=== PATIENT | male | born 1940 | race Caucasian/White ===

== ENCOUNTER 2016-11-13 23:59 | Inpatient (IN) | payer OTHER ==
--- NOTE | ~2016-11-13 | DS ---
Unit #: [id number] #: [id number] Patient: WENDY FERNANDEZ V [id number] [address] [place], [place] [address] [id number] MR#: [id number] NAME: WENDY FERNANDEZ V. ROOM: [facility] Age: 76 Sex: M Admission Date: 11/14/2016 : 1940 Discharge Date: 11/15/2016 Attending Physician: Rosemary Moon M.D. Primary Care Physician: Saranya Quinones A.P.R.N. DISCHARGE SUMMARY PRINCIPAL DIAGNOSES 1. Acute hypoxic respiratory failure secondary to number 2. 2. Acute exacerbation of chronic obstructive pulmonary disease. 3. Acute on chronic bronchitis. 4. Hyperkalemia. 5. Diabetes mellitus type 2, diet controlled. 6. Stress-induced hyperglycemia. 7. Hypertension. 8. Hyperlipidemia. 9. Stress-induced leukocytosis. 10. Obesity. 11. Coronary artery disease. 12. History of skin cancer. CONSULTANTS Dr. De La Cruz, cardiology. DIAGNOSTIC STUDIES IMAGING: Chest x-ray on November 14, 2016 with no acute findings. CLINICAL HISTORY AND HOSPITAL COURSE Mr. Fernandez is a 76-year-old male with a several-week history of progressive cough and shortness of breath, failing outpatient treatment with steroids and antibiotics. Please refer to H and P for further details. Patient presented to our ER and was found to have mildly low oxygen saturations in the high 80s, particularly with ambulation. White blood cell count was also elevated at 21,000, but patient had recently been taking steroids. Patient was subsequently admitted under the presumed diagnosis of pneumonia. Chest x-ray was done and did not reveal any pneumonia. Patient's symptoms were more consistent with COPD exacerbation and a persistent acute on chronic bronchitis. He was placed on IV steroids and IV antibiotics. This morning ambulating oxygen saturations are normal at 92%, and patient's wheezing, while not resolved, are significantly improved. Patient is insistent he would like to attend a reunion today out of town, and I think he can be safely discharged. I will note this morning patient had some mild hyperkalemia of 5.2, but perhaps this specimen was mildly hemolyzed. I am going to treat with a small dose of Lasix prior to discharge. Patient is also requesting some adjustments in medications, and I will give him meds as outline fellow, but I think ultimately, he needs to follow up with his primary care provider. Unit #: [id number] #: [id number] Patient: WENDY FERNANDEZ V DISCHARGE CONDITION Stable. DISCHARGE STATUS Discharge to home. DISCHARGE MEDICATIONS 1. Dulera 100/5 mcg 2 puffs b.i.d. (note this is replacing Symbicort due to cost, per patient request). 2. Metoprolol succinate 25 mg daily. 3. Losartan 50 mg daily. 4. Plavix 75 mg daily. 5. Prednisone 10 mg tablets: 4 tablets for 3 days, 3 tablets for 3 days, 2 tablets for 3 days, 1 tablet for 3 days, and discontinue. 6. Augmentin 875 mg p.o. b.i.d. patient already has a prescription for this medication, has not taken it. 7. DuoNeb nebulizer treatment q.6 hours p.r.n. shortness of breath. NOTE: I will note patient is also prescribed Combivent but states he is simply not going to use. DISCHARGE INSTRUCTIONS Patient instructed to follow a heart healthy, constant carb diet. He can increase his activity as tolerated. Should monitor his sugars at home while on steroids. FOLLOW-UP Patient will follow up with his primary care provider, Saranya Quinones A.P.R.N., in 2 weeks. Dictated by... Rosemary Moon M.D. HANH/breanne TD: 11/16/2016 16:13 JOB #: [id number] DISCHARGE SUMMARY Page 1 of 1 X Rosemary Moon MD X DISCHARGE SUMMARY
--- NOTE | ~2016-11-13 | EKG ---
PATIENT: WENDY BASHIR UNIT #: [id number] Ventricular Rate: 96 BPM Atrial Rate: 96 BPM P-R Interval: 126 ms QRS Duration: 122 ms Q-T Interval: 394 ms QTC Calculation(Bezet): 497 ms P [place]: 44 degrees Calculated R [place]: -60 degrees Calculated T [place]: 38 degrees Diagnosis Line: Normal sinus rhythm Diagnosis Line: Right bundle branch block Diagnosis Line: Left anterior fascicular block Diagnosis Line: Bifascicular block Diagnosis Line: Abnormal ECG Diagnosis Line: When compared with ECG of 14-NOV-2016 01:21, Diagnosis Line: (unconfirmed) Diagnosis Line: No significant change was found Diagnosis Line: Confirmed by YAYA DIEHL MD ([id number]) on Diagnosis Line: 11/15/2016 11:02:48 PM INTERPRETING MD: NANNETTE
--- NOTE | ~2016-11-13 | CO ---
Unit #: [id number] #: [id number] Patient: WENDY FERNANDEZ V [id number] [address] [place], [place] [address] [id number] MR#: [id number] NAME: WENDY FERNANDEZ V. ROOM: [facility] Age: 76 Sex: M Admission Date: 11/14/2016 : 1940 Attending Physician: Rosemary Moon M.D. Primary Care Physician: Saranya Quinones A.P.R.N. Consultation Date: 11/14/2016 CONSULTATION REPORT REASON FOR CONSULTATION Jaw pain. HISTORY OF PRESENT ILLNESS This is a 76-year-old white male with a known history of having coronary artery disease, had a PCI and stent placed to the RCA back last February at [place] who said two months after that he had pneumonia, recovered from that and then, over the last two to three weeks has been dealing with upper respiratory infection. He was told as an outpatient at the [facility] that he had pneumonia, that he had a couple of runs of antibiotics and some oral steroids. His complaints are a deep cough with occasional white sputum, occasional chills, intermittent left pleuritic chest pain and increased shortness of breath, especially with exertion and he has frequent bronchospasms. He does have a pulse oximetry at home along with a blood pressure cuff. He says over the past couple of days he has been monitoring his O2 saturation and last evening he took it and it was 89% at home. Sometimes when his oxygen level was 89 that he would have some aching in his jaw but denied any chest pain, pain in his neck, shoulders or elbows. He is not having any abdominal or back pain. No nausea, vomiting, diarrhea, abdominal pain. He denies any dizziness, presyncope or syncope. In the emergency room, the patient's blood pressure was 153/53. Heart rate was 129, respirations 18, temperature 98.0. O2 sat was 95% on room air. His chest x-ray, even though it did not show an active infiltrate. His WBC was 21. His lactic acid was also elevated. Initial cardiac enzymes are negative. His BNP is 105. He was treated with 125 mg of IV Solu-Medrol along with given a dose of IV Rocephin and Zithromax and a liter of normal saline. His serum glucose was 320 but he feels like that is mostly from being on steroids. Cardiology has been asked to evaluate the patient for complaints of jaw pain and because he has a history of coronary artery disease and had a stent last year. PAST MEDICAL HISTORY 1. Last cardiac cath was 02/2016 at [facility] done by Dr. Valenzuela status post PCI and resolute drug-eluting stent to the mid RCA, also found mild disease of the proximal circumflex and moderate disease of the proximal mid LAD. The circumflex had a 20 to 30% proximal stenosis and LAD had a mildly calcified 30 to 40% proximal stenosis and a mid 40 to 50% stenosis. Ejection fraction was found to be 60 to 65%, on dual antiplatelet therapy. Unit #: [id number] #: [id number] Patient: WENDY FERNANDEZ V 2. Last 2-D echo done at [facility] on 02/2016 showed LVEF of 50 to 55%, mild LVH, a trace of aortic regurgitation and tricuspid regurgitation, otherwise, unremarkable. 3. Hypertension. 4. Hyperlipidemia. 5. Diabetes mellitus type 2. 6. Dilatation of the ascending aorta, 4.1 cm. 7. COPD, has asthma, reformed smoker, quit in 1989. 8. History of TIAs in the past. 9. History of right bundle branch block on EKG. PAST SURGICAL HISTORY 1. 02/2016 PCI and drug-eluting stent to the mid RCA at [facility] by Dr. Valenzuela. 2. Appendectomy. 3. Kidney stones removed. 4. Skin cancer removed. 5. Right carpal tunnel surgery. 6. Umbilical hernia repair. SOCIAL HISTORY The patient lives with his spouse. He is retired. He quit smoking in 1989. He has a small glass of wine once a week. However, he admits to being a heavy drinker in his twenties and thirties. FAMILY HISTORY He was adopted. ALLERGIES Theophylline, fenofibrate, Demerol, Darvocet, Cipro. HOME MEDICATIONS 1. Losartan 50 mg one tablet p.o. daily. 2. Metoprolol 25 mg one p.o. twice daily. 3. Plavix 74 mg one tablet p.o. once daily. 4. Aspirin 81 mg daily. 5. Combivent and Symbicort. 6. Pravachol 10 mg p.o. daily. 7. Tapering steroid pack. 8. Augmentin, which the patient had taken only one dose. REVIEW OF SYSTEMS See details in HPI. PHYSICAL EXAMINATION GENERAL APPEARANCE: Mr. Fernandez is a 76-year-old white male in no acute respiratory distress. He is awake, alert and oriented. VITAL SIGNS: Blood pressure currently is 150/67. Heart rate 96. Respiration 18. Temperature 97.4. O2 sats 98% on two liters. NECK: Trachea midline. No thyromegaly or lymphadenopathy. Normal carotid upstrokes. No jugular venous distension. HEART: S1, S2. Regular rate and rhythm. No clicks, murmurs or rubs. LUNGS: Diminished with some scattered wheezes and rhonchi, especially in the upper airway. ABDOMEN: Slightly obese, soft, nontender. Positive bowel sounds present. EXTREMITIES: Pedal pulses are palpable. Trace pedal edema. DIAGNOSTIC STUDIES Unit #: [id number] #: [id number] Patient: WENDY FERNANDEZ V LABORATORY: Glucose 320, BUN 34, creatinine 1.3, EGFR 53.0, sodium 138, potassium 4.4, chloride 105, CO2 25, calcium 8.8, total protein 6.9, albumin 3.6, bilirubin total 0.5, AST 17, ALT 17, alkaline phosphatase 57. BNP 105. Lactic acid 3.3 and later 2.5. WBC 21.5, hemoglobin 12.1, hematocrit 38.3, platelets 221. Initial cardiac enzymes: CK MB 4.7, troponin less than 0.05. Latest enzymes: CK total 168, MB 9.8, percentage of MB 5.8, troponin 0.06. Urinalysis is unremarkable. Blood culture is pending. IMAGING: Chest x-ray shows no active disease. CARDIOVASCULAR: EKG shows normal sinus tachycardia. Heart rate 116 beats per minute, right bundle branch block, left anterior fascicular block, poor R wave progression. IMPRESSION 1. Community-acquired pneumonia with COPD exacerbation. 2. Coronary artery disease with complaints of jaw pain on this admission. 3. Status post PCI and stent to the mid RCA, 02/2016. 4. Sinus tachycardia. 5. LVEF of 50 to 55% on 2-D echo, 02/2016. 6. Hyperglycemia. 7. History of diabetes mellitus type 2 and has been recently on steroids. 8. Hypertension. 9. Hyperlipidemia. 10. History of dilation of the ascending aorta, 4.1 cm. 11. History of right bundle branch block on EKG. 12. Reformed smoker. PLAN 1. Cardiology consulted to evaluate patient with complaints of jaw pain in (1) that he had within the last few months angioplasty and stenting. On interview and exam, he states his jaw pain is when his O2 level was low at home. It was 89%. He said immediately when his oxygen level went higher, the jaw pain would ease off. He said it just felt like a little bit of pressure. He denied any pressure in his chest or up in his neck or his shoulders or down to the elbow. He also indicates that it did not feel like the same jaw pain that he had in the past when he had his FL last February before his stents. 2. We will continue to monitor his cardiac enzymes which so far are unremarkable. EKG does not show anything acute. If they remain normal, it will not be necessary to do any further cardiac workup at this time. Restart his home medications which include his dual antiplatelet therapy along with beta tian, which would also help control his heart rate which, on admission, his heart rate was 116. 3. I reviewed his records from [facility]. He says he has an appointment to see Dr. Valenzuela in the next month so we will advise him to make sure he follows up with that appointment. The patient is also on Lovenox subcu prophylactically. 4. Treatment for his pneumonia, exacerbation of COPD. 5. On exam, there are no signs or symptoms of acute congestive heart failure. 6. Further recommendations pending per Dr. De La Cruz. Thank you very much for allowing us to assist in care. Unit #: [id number] #: [id number] Patient: WENDY FERNANDEZ V Dictated by... Mansi Mitchell A.P.R.N. for Vianney Jose/simba TD: 11/14/2016 12:44 JOB #: [id number] CONSULTATION REPORT Page 1 of 1 X Mansi Mitchell APRN CONSULTATION REPORT
--- NOTE | ~2016-11-13 | HP ---
Unit #: [id number] #: [id number] Patient: WENDY BASHIR V [id number] [address] [place], [place] [address] [id number] MR#: [id number] NAME: WENDY BASHIR V. ROOM: [facility] Age: 76 Sex: M Admission Date: 11/14/2016 : 1940 Attending Physician: Shelia Ervin M.D. Primary Care Physician: Saranya Quinones A.P.R.N. HISTORY AND PHYSICAL CHIEF COMPLAINT Dyspnea. HISTORY This 76-year-old male with hypertension and CAD is admitted for complaints of dyspnea and cough. Patient states that he was well until coming in contact with an air conditioner [place] a [place] about three weeks ago. Developed a deep cough productive of white sputum, chills, intermittent left pleuritic chest pain, and increasing shortness of breath and bronchospasm. Was seen at [facility] and prescribed doxycycline, which he finished two days ago. [facility] and was given prescriptions for steroids along with Augmentin. Due to worsening shortness of breath with low O2 sats of 89% at home and palpitations, he therefore presented to this emergency department late last evening. Although his chest x-ray does not show an active infiltrate, his white blood count is 21 and his lactic acid is elevated. He also makes mention of intermittent bilateral jaw pain similar to his previous angina. He notes that this jaw pain has been occurring over the past couple of weeks and is associated with increase of shortness of breath, palpitations, and diaphoresis. The jaw discomfort does occur with exertion as well. Thus far, cardiac enzymes are negative and BNP is only 105. In the ER, he was treated with 125 mg of Solu-Medrol, 2 g of Rocephin, 500 mg of Zithromax, and a liter of saline bolus. A second liter of saline bolus was ordered, but I have asked that this be held as I have some concern that some of the patient's symptoms could be cardiac. His serum glucose is 320. He states that he does have a history of diet-controlled AODM. PAST MEDICAL HISTORY 1. CAD with previous PCI and stent at [facility], 02/2016. 2. Essential hypertension. 3. Hyperlipidemia. 4. History of kidney stones. 5. COPD/asthma. 6. Skin cancer. 7. Diet controlled AODM. 8. Appendectomy. 9. Umbilical hernia repair. 10. Multiple right hand surgeries and right carpal tunnel release. ALLERGIES Theophylline, fenofibrate, Demerol, Darvocet, and Cipro, which caused itching, I believe. Unit #: [id number] #: [id number] Patient: WENDY BASHIR V MEDICATIONS Home medications from the best I can determine include possibly: 1. Metoprolol. 2. Another blood pressure medicine of unknown name. 3. Albuterol mini-nebs. 4. Plavix 75 mg daily. 5. Combivent. 6. Symbicort 80/4.5. 7. Pravachol 10 mg daily. 8. Steroid taper. 9. Augmentin, which the patient may have taken one dose of at the most. FAMILY HISTORY CAD. SOCIAL HISTORY The patient lives with his . He stopped smoking in 1989. He has a small glass of wine once a week. REVIEW OF SYSTEMS Notable for shortness of breath, jaw pain, wheezing, cough, CAD, hypertension, hyperlipidemia, kidney stones, skin cancer, diet controlled AODM, and abovementioned surgeries. All other systems were reviewed are otherwise negative. PHYSICAL EXAMINATION GENERAL APPEARANCE: 76-year-old, moderately obese male who currently is in no acute distress. VITAL SIGNS: His temperature is 98, his pulse 129 after 2 albuterol nebulizers at home. Respirations 18, O2 saturation is 95% on 2 liters of oxygen, and blood pressure 153/53. HEENT: Eyes: PERRLA. Extraocular muscles are intact. Pharynx: Benign. NECK: Supple without adenopathy or thyromegaly. No JVD is noted. CHEST: Mild expiratory wheeze and rhonchi. CARDIAC: Tachy S1 and S2 with soft systolic murmur. There may be a gallop. ABDOMEN: Bowels sounds are present. No hepatosplenomegaly, tenderness, or masses. EXTREMITIES: Without edema. Pedal pulses are diminished. NEUROLOGIC: Patient is awake, alert, and oriented. Cranial nerves are intact. Equal strength throughout. DIAGNOSTIC STUDIES LABORATORY: Hematocrit is 38.3, white blood count is 21.5, and normal platelet count and 2 bands noted. Coags normal. SMA-12: Glucose 320 and BUN 34. BNP 105. Cardiac markers negative in the ER. Lactic acid 3.3. IMAGING: Chest x-ray: No acute disease. CARDIOVASCULAR: EKG shows a sinus tachycardia, rate 116, with a right bundle branch block and left anterior fascicular block, which was noted previously. T wave inversion noted in V2 and V3, which do look to be new. ASSESSMENT 1. Presumed occult community-acquired pneumonia with COPD exacerbation and acute hypoxic respiratory failure despite doxycycline. 2. Jaw pain in this patient with known CAD, status post PCI and stent Unit #: [id number] #: [id number] Patient: WENDY BASHIR V last February. Rule out ischemia. 3. Diet controlled AODM with hyperglycemia on steroids. 4. Elevated lactic acid level. Patient received IV fluids and antibiotics to cover for possible sepsis, but I am unsure whether this truly reflects sepsis. 5. Essential hypertension. PLANS 1. Rocephin and Zithromax will be continued pending blood cultures. Check urine for Legionella antigen. 2. Obtain records from [facility] and consult cardiology. Will add low-dose aspirin and Plavix and add nitro paste. Continue the patient's usual cardiac medications and will contact his pharmacy to verify medicines. 3. IV fluids. 4. Sliding scale insulin. 5. DVT prophylaxis. 6. Steroids, bronchodilators, and Symbicort. Dictated by Shelia Ervin M.D. KIRSTEN/anton TD: 11/14/2016 05:32 JOB #: [id number] HISTORY AND PHYSICAL Page 1 of 1 X Shelia Ervin MD X HISTORY AND PHYSICAL
--- NOTE | ~2016-11-13 | CR72 ---
[facility] A Service of [facility] & [facility] RADIOLOGY TEXT RESULTS PATIENT: WENDY BASHIR V LOCATION: [place] [address] : [birth year] UNIT #: [id number] AGE: [address]: Shelia Ervin MD SEX: M ORDER DR: [id number] [facility] [address] [facility]. [place], [place] [address] [id number] MR#: [id number] Acc #: [id number] NAME: WENDY BASHIR V. : 1940 SEX: M STUDY DATE/TIME: 11/14/2016 0:28 UNIT: [facility] ROOM: STUDY DESCRIPTION: CR Chest Single View Portable Attending Physician: Jamison Gunn M.D. Ordering Physician: Jamison Gunn M.D. Primary Care Physician: Saranya Quinones A.P.R.N. MEDICAL IMAGING REPORT This report is preliminary unless electronic signature is present EXAM Chest x-ray, 11/14/2016 HISTORY 76-year-old male in the ED complaining of shortness of air, cough, congestion and left side chest pain beginning earlier today. TECHNIQUE AP portable upright chest series. FINDINGS The heart size and pulmonary vascularity are within normal limits. The lungs appear clear. No visible pulmonary infiltrate or pleural effusion. Benign calcified granuloma right upper lobe. No change since 09/15/2013. IMPRESSION No active disease. No change since 09/15/2013. Dictated by... Franky Valle M.D. THIS IS AN ELECTRONICALLY VERIFIED REPORT Franky Valle M.D. at 11/14/2016 5:58 AM MAHESH/gosia TD: 11/14/2016 02:06 JOB #: [id number] MEDICAL IMAGING REPORT Page 1 of 1 COPY
--- NOTE | ~2016-11-13 | EKG ---
PATIENT: WENDY BASHIR UNIT #: [id number] Ventricular Rate: 116 BPM Atrial Rate: 116 BPM P-R Interval: 138 ms QRS Duration: 118 ms Q-T Interval: 360 ms QTC Calculation(Bezet): 500 ms P [place]: 58 degrees Calculated R [place]: -55 degrees Calculated T [place]: 57 degrees Diagnosis Line: Sinus tachycardia Diagnosis Line: Incomplete right bundle branch block Diagnosis Line: Left anterior fascicular block Diagnosis Line: Abnormal ECG Diagnosis Line: When compared with ECG of 30-APR-2016 23:40, Diagnosis Line: Premature atrial complexes are no longer Present Diagnosis Line: Vent. rate has increased BY 45 BPM Diagnosis Line: T wave inversion now evident in Anterior leads Diagnosis Line: Confirmed by YAYA DIEHL MD ([id number]) on Diagnosis Line: 11/15/2016 10:57:10 PM INTERPRETING MD: NANNETTE
[~2016-11-13 23:59] MED LIST: ADVAIR 1001 DISK W/D; ALBUTEROL 0.5ML INH; ALBUTEROL17 GM INH; ALLOPURINOL300 MG PO; ASPIRIN; ASPIRIN81 M2 PO; COMBIVENT INH14.7 GM INH; COMBIVENT14.7 GM INH; FLOMAX0.4 M1 PO; FLOVENT HFA12 GM INH; LIPITOR; PROAIR HFA8.5 GM IH; RAMIPRIL1.25 MG PO; SINGULAIR PO; SPIRIVA18 MCG; SPIRIVA18 MCG INH
[2016-11-14 00:58] LABS: BASOPHIL# 0.1 X10e3 (0-0.3); BASOPHIL% 0.3 % (0-2.5); DIFF IND YES; HEMATOCRIT 38.3 % (38.0-50.0); HEMOGLOBIN 12.1 gm/dL (13.0-16.0); LYMPHOCYTE# 0.4 X10e3 (1.0-3.5); LYMPHOCYTE% 1.8 % (17.0-45.0); MEAN CELL VOLUME 92.2 FL (83-96); MEAN CORPUSCULAR HGB CONC 31.5 g/dL (30-36); MEAN PLATELET VOLUME 8.5 FL (6.5-11.5); MONOCYTE# 0.7 X10e3 (0-1.0); MONOCYTE% 3.3 % (3.0-12.0); NEUTROPHIL# 20.3 X10e3 (1.5-7.1); NEUTROPHIL% 94.6 % (40-75); PLATELET COUNT 221 X10e3 (140-420); RED BLOOD COUNT 4.15 X10e (3.90-5.60); RED CELL DISTRIBUTION WIDTH 16.4 % (11.0-15.5); WHITE BLOOD COUNT 21.5 X10e3 (4.0-10.5)
[2016-11-14 01:06] LABS: PARTIAL THROMBOPLASTIN TIME 23.9 SECONDS (23.5-31.3); PROTHROMBIN TIME (PATIENT) 10.6 SECONDS (9.6-11.5)
[2016-11-14 01:15] LABS: ALBUMIN SERUM 3.6 g/dL (3.5-5.0); BILIRUBIN, DIRECT 0.1 mg/dL (0.0-0.2); BILIRUBIN,INDIRECT 0.4 mg/dL (0.0-0.9); BILIRUBIN,TOTAL 0.5 mg/dL (0.2-2.0); BUN/CREATININE RATIO 26.15; CALCIUM SERUM 8.8 mg/dL (8.4-10.2); CREATININE SERUM 1.3 mg/dL (0.6-1.4); POTASSIUM 4.4 mmol/L (3.5-5.1); PROTEIN TOTAL SERUM 6.9 g/dL (6.0-8.3)
[2016-11-14 01:16] LABS: ANISOCYTOSIS SL; PLATELET ESTIMATE NORMAL (NORMAL)
[2016-11-14 03:03] LABS: POC - CKMB 4.7 ng/mL (0.0-7.9); POC - TROPONIN <0.05 ng/mL (<=0.05)
[2016-11-14 03:58] LABS: URINE SOURCE CLEAN CATCH
[2016-11-14 04:04] LABS: URINE APPEARANCE TURBID; URINE BILIRUBIN NEG (NEG); URINE BLOOD NEG (NEG); URINE COLOR YELLOW; URINE GLUCOSE 500 MG/DL (NEG); URINE KETONE TRACE (NEG); URINE LEUKOCYTE ESTERASE NEG (NEG); URINE NITRATE NEG (NEG); URINE PROTEIN TRACE (NEG); URINE SPECIFIC GRAVITY 1.033 (1.003-1.035)
[2016-11-14 04:09] LABS: CULTURE INDICATED? NO
[2016-11-14 08:33] LABS: %MB 5.8 % (0.0-4.0); MB 9.8 ng/ml
[2016-11-14 13:31] LABS: %MB 5.8 % (0.0-4.0); MB 13.6 ng/ml
[2016-11-14] MEDS ORDERED: LOSARTAN POTASS50 MG PO (18:40)
[2016-11-14] MEDS ORDERED: TOPROL XL PO (18:42)
[2016-11-14] MEDS ORDERED: CLOPIDOGREL75 MG PO (18:44)
[2016-11-15 06:43] LABS: CALCIUM SERUM 8.5 mg/dL (8.4-10.2); GLOM FILT RATE Estimated 72.8 mL/min (>60); POTASSIUM 5.2 mmol/L (3.5-5.1)
[2016-11-15] MEDS ORDERED: AUGMENTIN PO (09:46)
[2016-11-15] MEDS ORDERED: DULERA 100 MCG/13 GM INH (09:48)
[2016-11-15] MEDS ORDERED: PREDNISONE10 MG PO ×2 (09:50→09:53)
[2016-11-15] MEDS ORDERED: PREDNISONE PO (09:51)
[2016-11-15] MEDS ORDERED: COMBIVENT U/D3 M4 INH (10:01)
== END 2016-11-15 11:35 | disposition home or self-care (01) | DRG 190 ==
LOC: CED 23:59 → CEDOF 11-14 03:20 → C4C 11-14 04:29
PROVIDERS: Emergency Medicine; Internal Medicine
PROC: 05H333Z Insertion of Infusion Device into Right Innominate Vein, Percutaneous Approach (ICD-10-PCS; principal; 2016-11-14)
PROC: B54MZZA Ultrasonography of Right Upper Extremity Veins, Guidance (ICD-10-PCS; 2016-11-14)
DX: J44.1 Chronic obstructive pulmonary disease with (acute) exacerbation (principal); J96.01 Acute respiratory failure with hypoxia; J20.9 Acute bronchitis, unspecified; J44.0 Chronic obstructive pulmonary disease with (acute) lower respiratory infection; E87.5 Hyperkalemia; E11.65 Type 2 diabetes mellitus with hyperglycemia; D72.829 Elevated white blood cell count, unspecified; T38.0X5A Adverse effect of glucocorticoids and synthetic analogues, initial encounter; I10 Essential (primary) hypertension; E78.5 Hyperlipidemia, unspecified; E66.9 Obesity, unspecified; I25.10 Atherosclerotic heart disease of native coronary artery without angina pectoris; Z85.828 Personal history of other malignant neoplasm of skin; Z88.1 Allergy status to other antibiotic agents; Z88.8 Allergy status to other drugs, medicaments and biological substances; Z82.49 Family history of ischemic heart disease and other diseases of the circulatory system; Z87.891 Personal history of nicotine dependence; R68.84 Jaw pain; Z87.442 Personal history of urinary calculi; Z68.30 Body mass index [BMI] 30.0-30.9, adult; Z79.02 Long term (current) use of antithrombotics/antiplatelets
CPT/HCPCS: 36415; 71010; 80048; 80076; 81003; 82308; 82550; 82553; 82947; 83036; 83605; 83880; 84484; 85025; 85610; 85730; 87040; 87449; 93005; 94640; 94664; 94760; 96361; 96365; 96374; 99285; J0456; J0696; J1650; J1815; J1940; J2920; J2930